=== PATIENT | male | born 1985 | race Caucasian/White ===

== ENCOUNTER 2024-04-28 19:33 | Emergency (ER) | payer BC, OTHER ==
[~2024-04-28] VITALS: Ht 182.9 cm; Wt 109.8 kg
[2024-04-28] MEDS ORDERED: VALA100026 PO (20:16)
[2024-04-28] MEDS ORDERED: PRED50TA PO (20:16)
[2024-04-28] MEDS ORDERED: PRED20TA PO (20:20)
[2024-04-28 20:42] VITALS: BP 147/99; TEMP 98.1; O2SAT 98
== END 2024-04-28 20:43 | disposition home or self-care (01) ==
LOC: ER 19:38
DX: G51.0 Bell's palsy (principal); J45.909 Unspecified asthma, uncomplicated; Z79.52 Long term (current) use of systemic steroids; Z79.624 Long term (current) use of inhibitors of nucleotide synthesis